=== PATIENT | male | born 1960 | race Caucasian/White ===

== ENCOUNTER 2021-03-10 11:07 | Observation (INO) ==
[2021-03-10] MEDS ORDERED: Ondansetron 4 MG/2 ML VIAL ONE (11:12)
[2021-03-10] MEDS ORDERED: *HR* FentaNYL (PF) 100 MCG/2 ML VIAL ONE (11:12)
[2021-03-10] MEDS ORDERED: *HR* Rocuronium Bromide 50 MG/5 ML VIAL ONE (11:12)
[2021-03-10] MEDS ORDERED: Lidocaine -MPF 4% 5 ML AMPUL ONE (11:12)
[2021-03-10] MEDS ORDERED: *HR* Midazolam HCl 2 MG/2 ML VIAL ONE (11:12)
[2021-03-10] MEDS ORDERED: Lidocaine -MPF 2% 2 ML VIAL ONE (11:12)
[2021-03-10] MEDS ORDERED: *HR* Propofol 200 MG/20 ML VIAL IVP ONE (11:12)
[2021-03-10] MEDS ORDERED: *HR* Succinylcholine 200 MG/10 ML VIAL IVP ONE (11:15)
[2021-03-10] MEDS ORDERED: CeFAZolin Syr 2,000MG/20 ML 2,000 MG/20 ML SYRINGE IVPB ONE (11:49)
[2021-03-10] MEDS ORDERED: Ondansetron 4 MG/2 ML VIAL IVP PRN ×2 (11:53→18:34)
[2021-03-10] MEDS ORDERED: *HR* HYDROcodone/Acet 7.5/325 mg TABLET PO PRN (11:53)
[2021-03-10] MEDS ORDERED: *HR* Labetalol 20 MG/4 ML SYRINGE IVP PRN (11:53)
[2021-03-10] MEDS ORDERED: Ringers Solution, Lactated 1,000 ML IVC SCH (12:00)
[2021-03-10] MEDS ORDERED: Dexmedetomidine HCl 400 MCG/100 ML MLS IVC ONE (12:08)
[2021-03-10] MEDS ORDERED: Bacitracin 50,000 UNIT, Polymyxin B Sulfate 500,000 UNIT, Sodium Chloride IRRigation 1,... IR ONE (12:40)
[2021-03-10] MEDS ORDERED: *HR* Magnesium Sulfate 1 GM/2 ML VIAL ONE (13:09)
[2021-03-10] MEDS ORDERED: Sugammadex Sodium 200 MG/2 ML VIAL IV ONE (13:37)
[2021-03-10] MEDS ORDERED: *HR* HYDROMORPHONE 2 MG/ML VIAL ONE (14:00)
[2021-03-10] MEDS ORDERED: *HR* Phenylephrine 10 MG/ML VIAL ONE (14:10)
[2021-03-10] MEDS: *HR* HYDROmorphone PF 0.5 MG/0.5 ML SYRINGE IVP PRN ×3 (17:05→17:25)
[2021-03-10] MEDS ORDERED: Naloxone 0.4 MG/ML INJ IVP PRN (18:34)
[2021-03-10] MEDS ORDERED: Acetaminophen 325 MG TABLET PO PRN (18:34)
[2021-03-10] MEDS: *HR* OxyCODONE Immed Rel 5 MG TABLET PO PRN (19:25)
[2021-03-10] MEDS: CeFAZolin 2 GM/120 ML BAG IVPB SCH (20:27)
[2021-03-10] MEDS: Famotidine 20 MG TABLET PO SCH (20:27)
[2021-03-11] MEDS ORDERED: Temazepam 15 MG CAPSULE PO ONE (01:40)
[2021-03-11] MEDS: CeFAZolin 2 GM/120 ML BAG IVPB SCH (04:34)
[2021-03-11] MEDS: Ringers Solution, Lactated 1,000 ML IVC SCH ×2 (07:39→15:43)
[2021-03-11] MEDS: Multivit/Ca/Min/Fe/FA 1 TAB TABLET PO SCH (08:04)
[2021-03-11] MEDS: Aspirin Enteric Coated 81 MG Tablet PO SCH (08:04)
[2021-03-11] MEDS: Famotidine 20 MG TABLET PO SCH ×2 (08:04→20:09)
[2021-03-11] MEDS: Valsartan 160 MG TABLET PO SCH (08:04)
[2021-03-11] MEDS: hydroCHLOROthiazide 25 MG TABLET PO SCH (08:05)
[2021-03-11] MEDS: *HR* HYDROcodone/Acet 5/325 mg TABLET PO PRN (08:12)
[2021-03-11] MEDS: *HR* OxyCODONE Immed Rel 5 MG TABLET PO PRN ×3 (13:07→22:03)
[2021-03-11] MEDS ORDERED: Temazepam 15 MG CAPSULE PO PRN (20:04)
[2021-03-12] MEDS: *HR* HYDROcodone/Acet 5/325 mg TABLET PO PRN (00:33)
[2021-03-12] MEDS: *HR* OxyCODONE Immed Rel 5 MG TABLET PO PRN ×3 (02:51→18:25)
[2021-03-12] MEDS: Aspirin Enteric Coated 81 MG Tablet PO SCH (09:42)
[2021-03-12] MEDS: Valsartan 160 MG TABLET PO SCH (09:42)
[2021-03-12] MEDS: Multivit/Ca/Min/Fe/FA 1 TAB TABLET PO SCH (09:43)
[2021-03-12] MEDS: hydroCHLOROthiazide 25 MG TABLET PO SCH (09:43)
[2021-03-12] MEDS: Famotidine 20 MG TABLET PO SCH ×2 (09:43→20:43)
[2021-03-12] MEDS: Gabapentin 300 MG CAPSULE PO SCH ×3 (13:21→20:42)
[2021-03-13] MEDS: *HR* OxyCODONE Immed Rel 5 MG TABLET PO PRN ×2 (02:20→06:31)
[2021-03-13 06:28] VITALS: BP 131/74
[2021-03-13] MEDS: hydroCHLOROthiazide 25 MG TABLET PO SCH (09:02)
[2021-03-13] MEDS: Gabapentin 300 MG CAPSULE PO SCH (09:02)
[2021-03-13] MEDS: Valsartan 160 MG TABLET PO SCH (09:02)
[2021-03-13] MEDS: Multivit/Ca/Min/Fe/FA 1 TAB TABLET PO SCH (09:02)
[2021-03-13] MEDS: Aspirin Enteric Coated 81 MG Tablet PO SCH (09:03)
[2021-03-13] MEDS: Famotidine 20 MG TABLET PO SCH (09:03)
== END 2021-03-13 10:02 | disposition home or self-care (01) ==
LOC: SAMDAY 11:07 → 3NENU 11:07
PROVIDERS: ADMIT Orthopaedic Surgery Orthopaedic Surgery of the Spine; ATTEND Orthopaedic Surgery Orthopaedic Surgery of the Spine